=== PATIENT | female | born 1970 | race Caucasian/White ===

== ENCOUNTER 2018-01-26 20:55 | Emergency (ER) | END 2018-01-27 01:58 | disposition home or self-care (01) ==

== ENCOUNTER 2018-10-28 07:08 | Emergency (ER) | payer SELFPAY ==
[~2018-10-28] VITALS: Ht 160 cm; Wt 63.2 kg
[~2018-10-28 07:08] MED LIST: DOCU-144 PO; FER325 PO; HYDR-4011 PO; NAPR-985 PO; SENN-36 PO
[2018-10-28 07:11] VITALS: BP 144/79; PULSE 68; RESP 18; Ht 160 cm; Wt 63.2 kg
[2018-10-28] MEDS ORDERED: CIPR500T4 PO (10:04)
[2018-10-28] MEDS ORDERED: ACET-141 PO (10:05)
[2018-10-28] MEDS ORDERED: IBUP-1542 PO (10:05)
--- NOTE | 2018-10-28 10:08 | ERD ---
ER Documentation Chief Complaint Chief Complaint left flank pain and frequency x 2 days HPI 48-year-old female past medical history for uterine fibroid surgery presents with left flank pain x2 days. She also says urinary frequency. The pain is not severe at 10, constant, nonradiating. She took Advil last night mild relief. She denies nausea, vomiting, diarrhea. No prior similar symptoms. Further denies fevers or just that she has urgency but does not actually have dysuria. No other modifying factors noted. No other treatments tried at home. ROS All systems reviewed and are negative except as per history of present illness. Medications Home Meds Active Scripts Ibuprofen* (Motrin*) 600 Mg Tab, 600 MG PO Q6H PRN for PAIN AND OR ELEVATED TEMP, #30 TAB Prov:TIFFANIE GAGNON DO 10/28/18 Acetaminophen* (Acetaminophen*) 500 MG Extra Strength Tablet, 500 MG PO Q4H PRN for PAIN AND OR ELEVATED TEMP, #30 TAB Prov:TIFFANIE GAGNON DO 10/28/18 Ciprofloxacin Hcl* (Ciprofloxacin Hcl*) 500 Mg Tablet, 500 MG PO BID for 5 Days, TAB Prov:TIFFANIE GAGNON DO 10/28/18 Naproxen* (Naprosyn*) 500 Mg Tablet, 500 MG PO BID PRN for PAIN AND/OR INFLAMMATION, #30 TAB Prov:ELSI SALGADO PA-C 01/27/18 Hydrocodone/Acetaminophen ([place] 5-325 Tablet) 1 Each Tablet, 1 TAB PO Q6H PRN for PAIN, #10 TAB Prov:ELSI SALGADO PA-C 01/27/18 Naproxen* (Naprosyn*) 500 Mg Tablet, 500 MG PO BID PRN for PAIN AND/OR INFLAMMATION, #30 TAB Prov:EROS HUSAIN PA-C 03/24/16 Hydrocodone/Acetaminophen ([place] 5-325 Tablet) 1 Each Tablet, 1 TAB PO Q6H PRN for PAIN, #7 TAB Prov:EROS HUSAIN PA-C 03/24/16 Sennosides* (Senokot*) 1 Tab Tab, 1 TAB PO DAILY for 30 Days, 2 Refills Prov:EDWIN COLLINS 03/24/15 Ferrous Sulfate* (Ferrous Sulfate*) 325 Mg Tabec, 325 MG PO BID WITH MEALS for 30 Days, 6 Refills Prov:EDWIN COLLINS S. 03/24/15 Docusate Sodium* (Colace*) 100 Mg Cap, 100 MG PO BID for 30 Days, 2 Refills Prov:EDWIN COLLINS S. 03/24/15 Allergies Allergies: Coded Allergies: No Known Allergy (Unverified , 01/26/18) PMhx/Soc History of Surgery: Yes (removal of fibroids) Anesthesia Reaction: No Hx Neurological Disorder: No Hx Respiratory Disorders: No Hx Cardiac Disorders: No Hx Psychiatric Problems: No Hx Miscellaneous Medical Probl: Yes (bleeding due to fibroids) Hx Alcohol Use: No Hx Substance Use: No Hx Tobacco Use: No Smoking Status: Never smoker FmHx Family History: No coronary disease Physical Exam Vitals Vital Signs Date Temp Pulse Resp B/P (MAP) Pulse Ox O2 O2 Flow FiO2 Time Delivery Rate 10/28/18 97.3 68 18 144/79 95 07:11 (100) Physical Exam Const: No acute distress Resp: Clear to auscultation bilaterally Cardio: Regular rate and rhythm, no murmurs Abd: Soft, non distended. Normal bowel sounds, no McBurney's point tenderness, no Rivas sign, no rebound or guarding noted Skin: No petechiae or rashes Back: No midline tenderness, there is mild left flank tenderness palpation Ext: No cyanosis, or edema Neur: Awake and alert Psych: Normal Mood and Affect Result Diagram: 10/28/18 0749 10/28/18 0749 Results 24 hrs Laboratory Tests Test 10/28/18 07:49 10/28/18 07:51 White Blood Count 4.8 10^3/ul Red Blood Count 4.81 10^6/ul Hemoglobin 13.9 g/dl Hematocrit 41.8 % Mean Corpuscular Volume 86.9 fl Mean Corpuscular Hemoglobin 28.9 pg Mean Corpuscular Hemoglobin Concent 33.3 g/dl Red Cell Distribution Width 13.3 % Platelet Count 200 10^3/UL Mean Platelet Volume 10.2 fl Immature Granulocytes % 0.200 % Neutrophils % 64.8 % Lymphocytes % 25.3 % Monocytes % 6.6 % Eosinophils % 2.5 % Basophils % 0.6 % Nucleated Red Blood Cells % 0.0 /100WBC Immature Granulocytes # 0.010 10^3/ul Neutrophils # 3.1 10^3/ul Lymphocytes # 1.2 10^3/ul Monocytes # 0.3 10^3/ul Eosinophils # 0.1 10^3/ul Basophils # 0.0 10^3/ul Nucleated Red Blood Cells # 0.0 10^3/ul Urine Color YELLOW Urine Clarity CLEAR Urine pH 6.0 Urine Specific [place] 1.019 Urine Ketones NEGATIVE mg/dL Urine Nitrite NEGATIVE mg/dL Urine Bilirubin NEGATIVE mg/dL Urine Urobilinogen NEGATIVE mg/dL Urine Leukocyte Esterase NEGATIVE Av/ul Urine Hemoglobin NEGATIVE mg/dL Urine Glucose NEGATIVE mg/dL Urine Total Protein NEGATIVE mg/dl Urine Test NEGATIVE Sodium Level 144 mmol/L Potassium Level 3.9 mmol/L Chloride Level 105 mmol/L Carbon Dioxide Level 30 mmol/L Anion Gap 9 Blood Urea Nitrogen 15 mg/dl Creatinine 0.65 mg/dl Est Glomerular Filtrat Rate mL/min > 60 mL/min Glucose Level 97 mg/dl Calcium Level 10.0 mg/dl Total Bilirubin 0.5 mg/dl Direct Bilirubin 0.00 mg/dl Indirect Bilirubin 0.5 mg/dl Aspartate Amino Transf (AST/SGOT) 33 IU/L Alanine Aminotransferase (ALT/SGPT) 34 IU/L Alkaline Phosphatase 84 IU/L Total Protein 8.1 g/dl Albumin 4.5 g/dl Globulin 3.60 g/dl Albumin/Globulin Ratio 1.25 Lipase 115 U/L Beta HCG, Quantitative 7.5 mIU/ml POC Beta HCG, Qualitative BORDERLINE Procedures/MDM Medical Decision Making: Differential diagnosis includes but not limited to acute gastritis, acute gastroenteritis, appendicitis, cholecystitis, pancreatitis, nephrolithiasis Patient appeared well on physical exam. Nontoxic appearing. ED course: Patient was given . Symptoms improved with treatment. Labs: CBC showed no severe anemia, no elevated WBC to suggest infection CMP showed no electrolyte abnormalities, there was normal kidney and liver function Lipase was normal Urine was borderline on urine dip, repeat on qualitative hCG urine shows negative. 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 urine culture ordered Prescription(s): Patient given prescription for supportive medications and cipro. Patient advised that she will be contacted if the treatment plan changes based on urine culture. Patient advised to follow up with PCP in 1-2 days. Patient advised to return to ED for new or worsening symptoms. Patient stable on discharge from the ED. Disclaimer: Inadvertent spelling and grammatical errors are likely due to EHR/dictation software use and do not reflect on the overall quality of patient care. Also, please note that the electronic time recorded on this note does not necessarily reflect the actual time of the patient encounter. Departure Diagnosis: Primary Impression: Flank pain Condition: Fair Patient Instructions: Flank Pain, Uncertain Cause Referrals: [facility] YOU HAVE RECEIVED A MEDICAL SCREENING EXAM AND THE RESULTS INDICATE THAT YOU DO NOT HAVE A CONDITION THAT REQUIRES URGENT TREATMENT IN THE EMERGENCY DEPARTMENT. FURTHER EVALUATION AND TREATMENT OF YOUR CONDITION CAN WAIT UNTIL YOU ARE SEEN IN YOUR DOCTORS OFFICE WITHIN THE NEXT 1-2 DAYS. IT IS YOUR RESPONSIBILITY TO MAKE AN APPOINTMENT FOR FOLOW-UP CARE. IF YOU HAVE A PRIMARY DOCTOR --you should call your primary doctor and schedule an appointment IF YOU DO NOT HAVE A PRIMARY DOCTOR YOU CAN CALL OUR PHYSICIAN REFERRAL HOTLINE AT IF YOU CAN NOT AFFORD TO SEE A PHYSICIAN YOU CAN CHOSE FROM THE FOLLOWING [facility] [address] [facility]. [facility] [address] [facility] [facility] [address] [facility] [facility] [address] [facility]. [facility] [address] [facility]. [facility]. [address] [place] Additional Instructions: Call your primary care doctor TOMORROW for an appointment during the next 1-2 days.See the doctor sooner or return here if your condition worsens before your appointment time. TIFFANIE GAGNON DO Oct 28, 2018 10:08
== END 2018-10-28 10:31 | disposition home or self-care (01) ==
LOC: FTE 07:08
DX: R10.9 Unspecified abdominal pain (principal)
CPT/HCPCS: 36415; 74018; 80053; 81003; 81025; 83690; 84702; 84703; 85025; 87086